=== PATIENT | female | born 1955 | race Caucasian/White ===

== ENCOUNTER 2020-12-09 12:16 | Emergency (ER) | payer MEDICARE, SELFPAY ==
[2020-12-09 12:46] VITALS: BP 152/82; PULSE 83; RESP 16; TEMP 36.6; O2SAT 98
--- NOTE | 2020-12-09 12:46 | ED.EYEPROB ---
HPI - Eye Problem General Chief complaint: Eye Problems Stated complaint: reji eye issues Time Seen by Provider: 12/09/20 12:46 Source: patient and RN notes reviewed Mode of arrival: ambulatory Limitations: no limitations History of Present Illness HPI Narrative: 65-year-old female presents to the [facility] with complaints of eye discomfort since yesterday. Reports right eye irritation worse to the lower lid. Patient has a history of cataract surgery in September 2019. Was not able to follow-up due to insurance and moving from [place] to [place]. Denies any blurry vision or change in vision. Denies pain Related Data Home Medications Medication Instructions Recorded Confirmed amlodipine 10 mg PO DAILY 12/09/20 12/09/20 clobetasol 1 applic TOPICAL HS 12/09/20 12/09/20 fluoxetine 10 mg PO DAILY 12/09/20 12/09/20 ibuprofen 600 mg PO TID 12/09/20 12/09/20 pantoprazole 20 mg PO HS 12/09/20 12/09/20 rosuvastatin 20 mg PO DAILY 12/09/20 12/09/20 Allergies Allergy/AdvReac Type Severity Reaction Status Date / Time No Known Allergies Allergy Verified 12/09/20 12:59 Review of Systems Review of Systems: All systems reviewed & are unremarkable except as noted in HPI and below Constitutional: Constitutional: Reports no additional constitutional complaints, Denies chills and Denies fever(s) Eyes: Eyes: Reports as per HPI, Denies change in vision and Denies photophobia ENT: Reports system reviewed and no additional complaints, except as documented Cardiovascular: Cardiovascular: Reports no additional cardiovascular complaints Respiratory: Respiratory: Reports no additional respiratory complaints Gastrointestinal: Gastrointestinal: Reports no additional gastrointestinal complaints Musculoskeletal: Musculoskeletal: Reports no additional musculoskeletal complaints Integumentary/Breasts: Skin/Breast: Reports system reviewed and no additional complaints, except as docu Neurologic: Reports system reviewed and no additional complaints, except as documented Psychiatric: Psychiatric: Reports no additional psychiatric complaints Allergic/Immunologic: Allergic/Immunologic: Reports no additional allergic/immunologic complaints [facility] Past Medical History Medical History (Updated 12/10/20 @ 12:07 by Ivy Morales) Chronic GERD Depression High cholesterol HTN (hypertension) Surgical History Surgical History (Updated 12/10/20 @ 12:03 by Ivy Morales) History of cataract surgery Comments At the time of my signature, I reviewed and agree with the nursing past medical, surgical, social, and family history. There is no relevant family history pertinent to the patient complaint. Exam Const: General: healthy appearing, no acute distress and alert Nutritional Appearance: well nourished and obese Orientation/consciousness: patient oriented x3 Limitations: no limitations HENMT: Head: normal to inspection and atraumatic Ears: hearing grossly normal bilaterally, external ears normal, TM's normal bilaterally and EAC's normal General nose exam: Normal external nose present Face and sinus: normal facial exam Mouth: Yes Normal oral and palatal mucosa present Eyes: Conjunctivae: conjunctival abnormality right (Injection with erythema noted to the right lateral lower conjunctiva) conjunctival injection localized and other; without discharge Pupils: Equal, round and reactive pupils present Neck: Neck: normal visual inspection, no lymphadenopathy and no meningeal signs Chest: Chest palpation & inspection: normal inspection of the chest Resp: Effort & Inspection: normal respiratory effort and no use of accessory muscles Auscultation: clear to auscultation bilaterally, no crackles, no rales, no rhonchi and no wheezes Cardio: Rate: regular rate Rhythm: regular rhythm : General: Yes no CVA tenderness Back/Spine/Pelvis: Back: no CVA tenderness Skin: General skin exam: normal color Rashes: no rashes Wounds: no wounds Neuro:
== END 2020-12-09 13:17 | disposition home or self-care (01) ==
PROVIDERS: Emergency Provider Nurse Practitioner
DX: H10.9 Unspecified conjunctivitis (principal); K21.9 Gastro-esophageal reflux disease without esophagitis; F32.9 Major depressive disorder, single episode, unspecified; E78.00 Pure hypercholesterolemia, unspecified; I10 Essential (primary) hypertension
CPT/HCPCS: 99203; G0463

== ENCOUNTER 2023-07-24 18:14 | Emergency (ER) | payer MEDICARE, SELFPAY ==
--- NOTE | ~2023-07-24 | XR_ITS ---
EXAM: XR knee LT 3V DATE: 07/24/2023 18:53 HISTORY: left lateral knee pain s/p fall yesterday . COMPARISON: None available. FINDINGS: Decreased mineralization. No fracture or dislocation. No lytic or blastic lesion. Tricompa rtmental osteoarthritic arthritis, severe in the medial compartment. Small volume joint fluid. No ero mahendra or periosteal change. Soft tissues within normal limits. IMPRESSION: No acute osseous finding in the left knee. Reviewed, dictated and finalized at location K.
[2023-07-24 18:26] VITALS: BP 147/67; PULSE 86; RESP 16; TEMP 36.6; O2SAT 98
--- NOTE | 2023-07-24 18:38 | ED.LOWEXIN ---
HPI - Extremity Injury (Lower) General Chief Complaint: Extremity Injury, Lower Stated Complaint: Left Knee Pain Time Seen by Provider: 07/24/23 18:39 Source: patient Mode of arrival: ambulatory Limitations: no limitations History of Present Illness HPI Narrative: 67-year-old female presents with complaint of pain to left knee on palpation. Patient states that she fell 5 days ago. States that her dog ran in from outside a and knocked her over. Fell onto left knee. States she has been fine but has a lot of tenderness when palpating bruises. Concern for fracture. 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 All systems reviewed and negative except as noted above. Related Data Home Medications Medication Instructions Recorded Confirmed rosuvastatin 20 mg tablet 20 mg PO DAILY 12/09/20 07/24/23 amlodipine 5 mg tablet 5 mg PO DAILY 07/24/23 07/24/23 atorvastatin 10 mg tablet 10 mg PO DAILY 07/24/23 07/24/23 duloxetine 60 mg capsule,delayed 60 mg PO DAILY 07/24/23 07/24/23 release metoprolol succinate 25 mg 25 mg PO DAILY 07/24/23 07/24/23 tablet,extended release 24 hr omeprazole 40 mg capsule,delayed 40 mg PO DAILY 07/24/23 07/24/23 release solifenacin 10 mg tablet 10 mg PO DAILY 07/24/23 07/24/23 Allergies Allergy/AdvReac Type Severity Reaction Status Date / Time No Known Allergies Allergy Verified 07/24/23 18:44 Review of Systems Review of Systems: CONSTITUTIONAL: Denies fever, chills, or sweats. EYES: Denies visual changes, redness, or discharge. ENT: Denies rhinorrhea, congestion, sore throat, or otalgia. CARDIOVASCULAR: Denies chest pain, palpitations, or edema. RESPIRATORY: Denies cough or dyspnea. GASTROINTESTINAL: Denies abdominal pain, nausea, vomiting, or diarrhea. GENITOURINARY: Denies dysuria or hematuria. SKIN: Denies rash or itching. MUSCULOSKELETAL: Reports pain and bruising to left knee. NEUROLOGIC: Denies headache, numbness, or weakness. PSYCHIATRIC: Denies anxiety or depression. All other systems reviewed are negative, except as documented in HPI. [facility] Past Medical History Medical History (Updated 07/24/23 @ 19:10 by Radha Delgado NP) Chronic GERD Depression High cholesterol HTN (hypertension) Surgical History Surgical History (Updated 12/10/20 @ 12:03 by Ivy Morales APRN) History of cataract surgery Comments At time of signature, agree with nursing past medical, surgical, social and family history. There is no relevant family history pertinent to the presenting complaint. Exam Narrative: GENERAL: This is a well-nourished, well-developed patient, in no apparent distress. HEAD: normocephalic, atraumatic. EYES: PERRL. Sclera clear/white. Vision is grossly intact. EARS: External ears normal NOSE: External nose normal NECK: Neck supple, non-tender without lymphadenopathy, masses or thyromegaly. CARDIOVASCULAR: Regular rate and rhythm without murmurs, gallops, or rubs. RESPIRATORY: Clear to auscultation. Breath sounds equal bilaterally. No wheezes, rales, or rhonchi. SKIN: warm, Dry, intact with no suspicious lesions or rash, good texture and turgor. NEURO: awake, alert, and oriented to person, place and time. There were no obvious focal neurologic abnormalities. EXTREMITIES: Left knee difficult to assess due to patient's body habitus. Contusion noted to anterior aspect of left knee with tenderness on palpation. Course Course Level of Care: Express Care Visit Vital Signs Vital signs: Vital Signs Temperature 36.6 C 07/24/23 18:26 Pulse Rate 86 07/24/23 18: Respiratory Rate 16 07/24/23 18: Blood Pressure 147/67 H 07/24/23 18: Pulse Oximetry 98 07/24/23 18:26 Oxygen Delivery Room Air 07/24/23 18:26 Temperature 36.6 C 07/24/23 18:26 Pulse Rate 86 07/24/23 18:26 Respiratory Rate 16 07/24/23 18:26 Blood Pressure 147/67 H 07/24/23 18:26 Pulse Oximetry 98
== END 2023-07-24 19:13 | disposition home or self-care (01) ==
PROVIDERS: Emergency Provider Nurse Practitioner Family; PCP Family Medicine
DX: S80.02XA Contusion of left knee, initial encounter (principal); W54.1XXA Struck by dog, initial encounter; K21.9 Gastro-esophageal reflux disease without esophagitis; E78.00 Pure hypercholesterolemia, unspecified; I10 Essential (primary) hypertension
CPT/HCPCS: 73562; 99213; G0463